=== PATIENT | male | born 1955 | race Hispanic/Latino ===

== ENCOUNTER 2020-12-07 12:35 | Outpatient (CLI) | payer MEDICARE | END 2020-12-07 12:36 | disposition home or self-care (01) | LOC: TBSIIMAG 12:35 | PROVIDERS: ATTEND Nurse Practitioner Family | DX: M47.26 Other spondylosis with radiculopathy, lumbar region (principal); M47.24 Other spondylosis with radiculopathy, thoracic region | CPT/HCPCS: 72072; 72100; 72146; 72148 ==

== ENCOUNTER 2020-12-19 10:11 | Outpatient (CLI) | payer MEDICARE | END 2020-12-19 10:12 | disposition home or self-care (01) | LOC: TBSIIMAG 10:11 | PROVIDERS: ATTEND Nurse Practitioner Family | DX: M48.02 Spinal stenosis, cervical region (principal); M47.812 Spondylosis without myelopathy or radiculopathy, cervical region; M25.78 Osteophyte, vertebrae | CPT/HCPCS: 72141 ==

== ENCOUNTER 2021-09-10 10:57 | Outpatient (CLI) | payer MEDICARE ==
[2021-09-10 12:34] LABS: Hemoglobin 14.8 g/dL (13.5-17.5); Mean Corpuscular HGB CONC 33.3 g/dL (32.0-36.0); Mean Corpuscular Hemoglobin 28.7 pg (27.0-33.0); Mean Corpuscular Volume 86.4 fl (81.2-95.1); Mean Platelet Volume 9.3 fl (7.4-10.4); Platelet Count 225 10x3/uL (150-450); RBC Distribution Width 12.2 % (11.5-14.5); Red Blood Cell (RBC) Count 5.15 10x6/uL (4.32-5.72); White Blood Cell (WBC) Count 7.1 10x3/uL (3.5-10.5)
[2021-09-10 12:57] LABS: PTT 26.4 sec (22.0-33.0); Prothrombin Time 10.9 sec (9.5-12.1)
[2021-09-10 13:11] LABS: Anion Gap 14 mmol/L (10-20); BUN (Urea Nitrogen) 16 mg/dL (8.4-25.7); Calc. Creatinine Clearance 0 mL/min (70-130); Calcium 9.6 mg/dL (7.8-10.44); Carbon Dioxide 26 mmol/L (23-31); Chloride 103 mmol/L (98-107); Glucose 326 mg/dL (80-115); Potassium 4.3 mmol/L (3.5-5.1); Sodium 139 mmol/L (136-145)
[2021-09-10 23:42] LABS: SARS-CoV-2 PCR by NAA Not Detected (NotDetected)
== END 2021-09-10 10:58 | disposition home or self-care (01) ==
LOC: LABBT 10:57
PROVIDERS: ATTEND Surgery
DX: Z01.818 Encounter for other preprocedural examination (principal); M54.16 Radiculopathy, lumbar region; M48.062 Spinal stenosis, lumbar region with neurogenic claudication; Z20.822 Contact with and (suspected) exposure to COVID-19
CPT/HCPCS: 80048; 85027; 85610; 85730; 93005; U0003; U0005; 93010

== ENCOUNTER 2021-10-18 06:08 | Day surgery (SDC) | payer MEDICARE ==
[2021-09-10 14:06] VITALS: BMI 33.4
[2021-10-18] MEDS ORDERED: Ketamine 50 MG/ML (10ML VIAL) ONE (06:40)
[2021-10-18] MEDS ORDERED: Fentanyl 100 MCG/2 ML VIAL ONE (06:41)
[2021-10-18 07:18] LABS: ALT (SGPT) 60 U/L (8-55); AST (SGOT) 43 U/L (5-34); Albumin 4.5 g/dL (3.4-4.8); Alkaline Phosphatase 197 U/L (40-110); Anion Gap 22 mmol/L (10-20); BUN (Urea Nitrogen) 71 mg/dL (8.4-25.7); Bilirubin, Total 0.9 mg/dL (0.2-1.2); Calc. Creatinine Clearance 20 mL/min (70-130); Calcium 9.3 mg/dL (7.8-10.44); Carbon Dioxide 17 mmol/L (23-31); Chloride 99 mmol/L (98-107); Globulin 3.3 g/dL (2.4-3.5); Glucose 123 mg/dL (80-115); Potassium 4.3 mmol/L (3.5-5.1); Protein, Total 7.8 g/dL (5.8-8.1); Sodium 134 mmol/L (136-145)
[2021-10-18] MEDS ORDERED: Thrombin 5000 UNITS/5 ML VIAL ONE (07:18)
== END 2021-10-18 07:32 ==
LOC: SDC 06:08
PROVIDERS: ATTEND Surgery
DX: M48.061 Spinal stenosis, lumbar region without neurogenic claudication (principal); Z53.8 Procedure and treatment not carried out for other reasons; M54.16 Radiculopathy, lumbar region; Z79.82 Long term (current) use of aspirin; Z79.84 Long term (current) use of oral hypoglycemic drugs; Z79.899 Other long term (current) drug therapy
CPT/HCPCS: 76000; 80053; J3010; J3370

== ENCOUNTER 2021-12-30 11:22 | Outpatient (CLI) | payer MEDICARE ==
[2021-12-30 13:08] LABS: Hemoglobin 14.3 g/dL (13.5-17.5); Mean Corpuscular HGB CONC 34.1 g/dL (32.0-36.0); Mean Platelet Volume 9.5 fl (7.4-10.4); Platelet Count 260 10x3/uL (150-450); RBC Distribution Width 12.5 % (11.5-14.5); Red Blood Cell (RBC) Count 4.76 10x6/uL (4.32-5.72)
[2021-12-30 13:30] LABS: Anion Gap 15 mmol/L (10-20); BUN (Urea Nitrogen) 16 mg/dL (8.4-25.7); Calc. Creatinine Clearance 0 mL/min (70-130); Calcium 9.6 mg/dL (7.8-10.44); Carbon Dioxide 26 mmol/L (23-31); Chloride 105 mmol/L (98-107); Glucose 133 mg/dL (80-115); Potassium 4.3 mmol/L (3.5-5.1); Sodium 142 mmol/L (136-145)
[2021-12-30 13:43] LABS: PTT 26.7 sec (22.0-33.0); Prothrombin Time 10.5 sec (9.5-12.1)
== END 2021-12-30 11:23 | disposition home or self-care (01) ==
LOC: LABBT 11:22
PROVIDERS: ATTEND Surgery
DX: Z01.818 Encounter for other preprocedural examination (principal); M54.16 Radiculopathy, lumbar region; M48.062 Spinal stenosis, lumbar region with neurogenic claudication; Z20.822 Contact with and (suspected) exposure to COVID-19
CPT/HCPCS: 80048; 85027; 85610; 85730; 93005; U0003; U0005; 93010

== ENCOUNTER 2022-01-02 05:35 | Inpatient (IN) | payer MEDICARE ==
[2022-01-02] MEDS ORDERED: Thrombin 5000 UNITS/5 ML VIAL ONE (06:30)
[2022-01-02] MEDS ORDERED: Midazolam HCl 2 mg/2 ml Vial ONE (06:44)
[2022-01-02] MEDS ORDERED: fentaNYL Citrate/PF 100 MCG/2 ML SYRINGE ONE ×2 (06:44→09:38)
[2022-01-02] MEDS ORDERED: Sodium Chloride 0.9% 100 ML ONE (07:11)
[2022-01-02] MEDS ORDERED: CEFAZOLIN 2 GM VIAL ONE (07:11)
[2022-01-02] MEDS ORDERED: Lidocaine 1% PF 5 ML VIAL ONE (07:24)
[2022-01-02] MEDS ORDERED: PHENYLEPHRINE-NS 100 MCG/ML 10 ML SYRINGE ONE (07:24)
[2022-01-02] MEDS ORDERED: PROPOFOL 200 MG/20 ML VIAL ONE (07:24)
[2022-01-02] MEDS ORDERED: Labetalol HCl 100 MG/20 ML VIAL ONE (07:24)
[2022-01-02] MEDS ORDERED: Rocuronium Bromide 10 MG/ML (10ML VIAL) ONE (07:24)
[2022-01-02] MEDS ORDERED: Dexamethasone 20 MG/5 ML VIAL ONE (07:24)
[2022-01-02] MEDS ORDERED: Ondansetron PF 4 MG/2 ML Vial ONE (07:24)
[2022-01-02] MEDS ORDERED: Glycopyrrolate 0.2 MG/ML 5 ML SYRINGE ONE (07:24)
[2022-01-02] MEDS ORDERED: Chlorhexidine Gluconate 15 ML UDCUP SSP ONE (07:24)
[2022-01-02] MEDS ORDERED: ePHEDrine 50 MG/ML VIAL ONE (07:24)
[2022-01-02] MEDS ORDERED: Fentanyl 100 MCG/2 ML VIAL ONE (09:42)
[2022-01-02] MEDS ORDERED: Acetaminophen 325 MG TAB PO PRN (09:58)
[2022-01-02] MEDS ORDERED: traMADol HCl 50 MG TAB PO PRN (09:58)
[2022-01-02] MEDS ORDERED: hydrALAZINE 20 MG/ML VIAL SLOW IVP PRN (10:04)
[2022-01-02 10:58] VITALS: BMI 34.0
[2022-01-02] MEDS: CEFAZOLIN 2 GM in Sodium Chloride 0.9% 100 ML IVPB SCH ×2 (11:16→17:23)
[2022-01-02] MEDS: Sodium Chloride 0.9% 1,000 ML IV SCH ×2 (11:17→23:04)
[2022-01-02] MEDS: HYDROcodone/Acetaminophen 7.5/325 mg Tablet PO PRN ×2 (12:19→18:33)
[2022-01-02] MEDS: Acetaminophen/Codeine 30-300mg Tablet PO PRN ×2 (15:09→22:24)
[2022-01-02] MEDS: Atorvastatin Calcium 20 MG TAB PO SCH (21:15)
[2022-01-02] MEDS: Morphine 2 MG/ML VIAL SLOW IVP PRN (21:18)
[2022-01-03] MEDS: HYDROcodone/Acetaminophen 7.5/325 mg Tablet PO PRN ×4 (00:05→22:25)
[2022-01-03] MEDS: Ondansetron PF 4 MG/2 ML Vial IVP PRN ×3 (00:08→21:06)
[2022-01-03] MEDS: tiZANidine HCl 4 MG TAB PO PRN ×2 (00:08→22:25)
[2022-01-03] MEDS: Lisinopril 20 MG TAB PO SCH (08:50)
[2022-01-03] MEDS: Montelukast Sodium 10 mg Tablet PO SCH (08:50)
[2022-01-03] MEDS: Cholestyramine/Aspartame 4 gm Packet PO SCH (08:50)
[2022-01-03] MEDS: Fenofibrate Nanocrystallized 145 MG TAB PO SCH (08:50)
[2022-01-03] MEDS: Morphine 2 MG/ML VIAL SLOW IVP PRN (08:51)
[2022-01-03] MEDS: Sodium Chloride 0.9% 1,000 ML IV SCH (08:51)
[2022-01-03] MEDS: Acetaminophen/Codeine 30-300mg Tablet PO PRN (21:05)
[2022-01-03] MEDS: Atorvastatin Calcium 20 MG TAB PO SCH (21:06)
[2022-01-04] MEDS: Sodium Chloride 0.9% 1,000 ML IV SCH (00:31)
[2022-01-04 08:43] VITALS: BP 122/72; TEMP 99.3
[2022-01-04] MEDS: Lisinopril 20 MG TAB PO SCH (10:12)
[2022-01-04] MEDS: HYDROcodone/Acetaminophen 7.5/325 mg Tablet PO PRN (10:12)
[2022-01-04] MEDS: Fenofibrate Nanocrystallized 145 MG TAB PO SCH (10:12)
[2022-01-04] MEDS: Cholestyramine/Aspartame 4 gm Packet PO SCH (10:12)
[2022-01-04] MEDS: Montelukast Sodium 10 mg Tablet PO SCH (10:12)
[2022-01-04] MEDS: Acetaminophen/Codeine 30-300mg Tablet PO PRN (15:19)
== END 2022-01-04 16:53 | disposition home or self-care (01) | DRG 517 ==
LOC: SDC 05:35 → MSONC 10:04 → OBSVTOIN 01-03 09:45
PROVIDERS: ADMIT Surgery; ATTEND Surgery
PROC: 01NB0ZZ Release Lumbar Nerve, Open Approach (ICD-10-PCS; principal; 2022-01-02)
DX: M48.062 Spinal stenosis, lumbar region with neurogenic claudication (principal); M54.16 Radiculopathy, lumbar region; F10.10 Alcohol abuse, uncomplicated; Z20.822 Contact with and (suspected) exposure to COVID-19; I10 Essential (primary) hypertension; E78.5 Hyperlipidemia, unspecified; I25.10 Atherosclerotic heart disease of native coronary artery without angina pectoris; F17.210 Nicotine dependence, cigarettes, uncomplicated; F32.A Depression, unspecified; J30.2 Other seasonal allergic rhinitis; Z79.899 Other long term (current) drug therapy; Z79.82 Long term (current) use of aspirin; Z95.5 Presence of coronary angioplasty implant and graft
CPT/HCPCS: 76000; J1100; J2250; J2270; J2405; J2704; J3010; J3370; J3490; J7050

== ENCOUNTER 2022-04-17 09:24 | Outpatient (CLI) | payer MEDICARE | END 2022-04-17 09:25 | disposition home or self-care (01) | LOC: CTENTCT 09:24 | PROVIDERS: ATTEND Otolaryngology Plastic Surgery within the Head & Neck | DX: J30.9 Allergic rhinitis, unspecified (principal) | CPT/HCPCS: 70486 ==

== ENCOUNTER 2022-06-02 23:26 | Emergency (ER) | payer MEDICARE ==
[2022-06-03] MEDS ORDERED: Morphine 4 MG/ML VIAL ONE (00:16)
[2022-06-03] MEDS ORDERED: Ondansetron PF 4 MG/2 ML Vial ONE (00:16)
[2022-06-03] MEDS ORDERED: Ketorolac Tromethamine 30 MG/ML VIAL ONE (00:16)
[2022-06-03 00:46] LABS: #Eosinphils 0.3 thou/uL (0.0-0.7); #Monocytes 0.6 thou/uL (0.11-0.59); #Neutrophils 4.9 thou/uL (1.40-6.50); %Eosinophils 3.7 % (0.0-10.0); %Lymphocytes 25.7 % (21.0-51.0); %Monocytes 8.1 % (0.0-10.0); %Neutrophils 62.5 % (42.0-75.0); Hemoglobin 12.9 g/dL (14.0-18.0); Mean Corpuscular HGB CONC 34.1 g/dL (32.0-36.0); Mean Corpuscular Hemoglobin 30.9 pg (27.0-31.0); Mean Corpuscular Volume 90.5 fl (78.0-98.0); Mean Platelet Volume 7.1 fL (7.4-10.4); Platelet Count 231 thou/uL (130-400); RBC Distribution Width 12.3 % (11.5-14.5); Red Blood Cell (RBC) Count 4.16 mill/uL (4.70-6.10); White Blood Cell (WBC) Count 7.9 thou/uL (4.8-10.8)
[2022-06-03 01:24] LABS: ALT (SGPT) 41 U/L (8-55); AST (SGOT) 30 U/L (5-34); Albumin 4.1 g/dL (3.4-4.8); Alkaline Phosphatase 175 U/L (40-110); Anion Gap 11 mmol/L (10-20); BUN (Urea Nitrogen) 28 mg/dL (8.4-25.7); Bilirubin, Total 0.6 mg/dL (0.2-1.2); Calc. Creatinine Clearance 0 mL/min (70-130); Calcium 9.6 mg/dL (7.8-10.44); Carbon Dioxide 27 mmol/L (23-31); Chloride 104 mmol/L (98-107); Estimated GFR 46; Globulin 3.4 g/dL (2.4-3.5); Glucose 161 mg/dL (80-115); Potassium 3.7 mmol/L (3.5-5.1); Protein, Total 7.5 g/dL (5.8-8.1); Sodium 138 mmol/L (136-145)
[2022-06-03 01:39] LABS: Bilirubin Negative (Negative); Blood, Urine Negative (Negative); Clarity Clear (Clear); Glucose, Urine (Dipstick) Normal (Negative); Ketone, Urine Trace mg/dL (Negative); Leukocyte Negative Leu/uL (Negative); Nitrite Negative (Negative); Protein, Urine (Dipstick) 20 mg/dL (Neg-Trace); Specific Gravity, Urine 1.042 (1.002-1.036)
== END 2022-06-03 01:55 | disposition home or self-care (01) ==
LOC: ERS 23:26
DX: M54.32 Sciatica, left side (principal); I10 Essential (primary) hypertension; E78.00 Pure hypercholesterolemia, unspecified; E11.9 Type 2 diabetes mellitus without complications; F17.200 Nicotine dependence, unspecified, uncomplicated
CPT/HCPCS: 74176; 80053; 81003; 85025; 87086; 96374; 96375; J1885; J2270; J2405

== ENCOUNTER 2022-06-30 13:54 | Outpatient (CLI) | payer MEDICARE | END 2022-06-30 13:55 | disposition home or self-care (01) | LOC: SCSMRI 13:54 | PROVIDERS: ATTEND Surgery | DX: M47.26 Other spondylosis with radiculopathy, lumbar region (principal); Z98.890 Other specified postprocedural states | CPT/HCPCS: 72120; 72148 ==

== ENCOUNTER 2022-12-10 11:39 | Outpatient (CLI) | payer MEDICARE | END 2022-12-10 11:40 | disposition home or self-care (01) | LOC: LABBT 11:39 | PROVIDERS: ATTEND Thoracic Surgery (Cardiothoracic Vascular Surgery) | DX: Z01.810 Encounter for preprocedural cardiovascular examination (principal); I25.10 Atherosclerotic heart disease of native coronary artery without angina pectoris | CPT/HCPCS: 80048; 85027; 86850; 86900; 86901; 93005; 93010 ==

== ENCOUNTER 2024-05-23 08:45 | Outpatient (CLI) | payer MEDICARE | END 2024-05-23 08:46 | disposition home or self-care (01) | LOC: ULT 08:45 | PROVIDERS: ATTEND Family Medicine | DX: R74.8 Abnormal levels of other serum enzymes (principal); R16.1 Splenomegaly, not elsewhere classified | CPT/HCPCS: 76700 ==

== ENCOUNTER 2024-05-25 07:39 | Outpatient (CLI) | payer MEDICARE | END 2024-05-25 07:40 | disposition home or self-care (01) | LOC: SCSMRI 07:39 | PROVIDERS: ATTEND Student in an Organized Health Care Education/Training Program | DX: R51.9 Headache, unspecified (principal); R29.898 Other symptoms and signs involving the musculoskeletal system; M47.816 Spondylosis without myelopathy or radiculopathy, lumbar region; M48.061 Spinal stenosis, lumbar region without neurogenic claudication; R93.0 Abnormal findings on diagnostic imaging of skull and head, not elsewhere classified; Z98.890 Other specified postprocedural states | CPT/HCPCS: 70551; 72148 ==

== ENCOUNTER 2024-07-14 08:43 | Outpatient (CLI) | payer MEDICARE | END 2024-07-14 08:44 | disposition home or self-care (01) | LOC: SCSMRI 08:43 | PROVIDERS: ATTEND Physician Assistant Medical | DX: R79.89 Other specified abnormal findings of blood chemistry (principal); Z12.11 Encounter for screening for malignant neoplasm of colon; R19.4 Change in bowel habit; R10.13 Epigastric pain; R16.1 Splenomegaly, not elsewhere classified | CPT/HCPCS: 74183; 76376 ==

== ENCOUNTER 2025-03-09 11:36 | Outpatient (CLI) | payer MEDICARE ==
[2025-03-09 12:41] LABS: #Basophils Less than 0.03 10x3/uL (0.0-0.2); #Eosinophils 0.05 10x3/uL (0.0-0.7); #Monocytes 0.48 10x3/uL (0.11-0.59); #Neutrophils 4.71 10x3/uL (1.40-6.50); %Basophils 0.3 % (0.0-1.0); %Eosinophils 0.8 % (0.0-10.0); %Lymphocytes 16.7 % (21.0-51.0); %Monocytes 7.6 % (0.0-10.0); %Neutrophils 74.3 % (42.0-75.0); Hematocrit 22.7 % (42.0-52.0); Hemoglobin 6.8 g/dL (14.0-18.0); Mean Corpuscular Hemoglobin 25.9 pg (27.0-31.0); Mean Corpuscular Volume 86.3 fL (78.0-98.0); Platelet Count 148 10x3/uL (130-400); Red Blood Cell (RBC) Count 2.63 mill/uL (4.70-6.10); White Blood Cell (WBC) Count 6.34 10x3/uL (4.8-10.8)
[2025-03-09 12:59] LABS: Anion Gap 14 mmol/L (10-20); BUN (Urea Nitrogen) 29 mg/dL (8.4-25.7); Calc. Creatinine Clearance 0 mL/min (70-130); Calcium 8.2 mg/dL (7.8-10.44); Carbon Dioxide 26 mmol/L (23-31); Chloride 108 mmol/L (98-107); Glucose 162 mg/dL (80-115); Potassium 3.8 mmol/L (3.5-5.1); Sodium 144 mmol/L (136-145)
== END 2025-03-09 11:37 | disposition home or self-care (01) ==
LOC: LABBT 11:36
PROVIDERS: ATTEND Internal Medicine Cardiovascular Disease
DX: Z01.812 Encounter for preprocedural laboratory examination (principal); I48.92 Unspecified atrial flutter
CPT/HCPCS: 80048; 85025

== ENCOUNTER 2025-03-14 12:22 | Inpatient (IN) | payer MEDICARE ==
[~2025-03-14 12:22] MED LIST: Iopamidol-370 76% 500 ML MDV (1 ML CHARGE) ONE
[2025-03-14 14:36] LABS: #Basophils Less than 0.03 10x3/uL (0.0-0.2); #Eosinophils 0.12 10x3/uL (0.0-0.7); #Monocytes 0.71 10x3/uL (0.11-0.59); #Neutrophils 5.14 10x3/uL (1.40-6.50); %Basophils 0.3 % (0.0-1.0); %Eosinophils 1.6 % (0.0-10.0); %Lymphocytes 19.9 % (21.0-51.0); %Monocytes 9.4 % (0.0-10.0); %Neutrophils 68.4 % (42.0-75.0); Hematocrit 21.7 % (42.0-52.0); Hemoglobin 6.3 g/dL (14.0-18.0); Mean Corpuscular Hemoglobin 24.2 pg (27.0-31.0); Mean Corpuscular Volume 83.5 fL (78.0-98.0); Platelet Count 182 10x3/uL (130-400); Red Blood Cell (RBC) Count 2.60 mill/uL (4.70-6.10); White Blood Cell (WBC) Count 7.52 10x3/uL (4.8-10.8)
[2025-03-14 14:54] LABS: ALT (SGPT) 38 U/L (Less than 45); AST (SGOT) 29 U/L (11-34); Albumin 3.6 g/dL (3.1-4.5); Alkaline Phosphatase 279 U/L (40-110); Anion Gap 12 mmol/L (10-20); BUN (Urea Nitrogen) 18 mg/dL (8.4-25.7); Bilirubin, Total 1.0 mg/dL (0.3-1.2); Calc. Creatinine Clearance 0 mL/min (70-130); Calcium 8.1 mg/dL (7.8-10.44); Carbon Dioxide 24 mmol/L (23-31); Chloride 107 mmol/L (98-107); Globulin 3.1 g/dL (2.4-3.5); Glucose 166 mg/dL (80-115); Potassium 3.4 mmol/L (3.5-5.1); Sodium 140 mmol/L (136-145)
[2025-03-14] MEDS ORDERED: Ondansetron PF 4 MG/2 ML Vial ONE (17:07)
[2025-03-14] MEDS ORDERED: Pantoprazole 40 MG VIAL ONE (17:07)
[2025-03-14] MEDS ORDERED: Ondansetron PF 4 MG/2 ML Vial IVP PRN (19:40)
[2025-03-14 21:54] VITALS: BMI 33.1
[2025-03-14] MEDS: Furosemide 40 MG (4 mL) VIAL SLOW IVP SCH (22:11)
[2025-03-15 00:39] LABS: Iron 72 ug/dL (65-175); Iron Binding Capacity, Total 443 mcg/dL (261-462)
[2025-03-15 00:44] LABS: Hematocrit 21.4 % (42.0-52.0); Hemoglobin 6.5 g/dL (14.0-18.0)
[2025-03-15] MEDS: Octreotide Acetate 1,250 MCG in Sodium Chloride 0.9% 250 ML 250 ML IVPB SCH (03:13)
[2025-03-15 03:22] LABS: Ferritin 7.49 ng/mL (22-322); Vitamin B12 459.0 pg/mL (211-911)
[2025-03-15] MEDS: Pantoprazole 40 MG VIAL IVP SCH (08:14)
[2025-03-15] MEDS ORDERED: PROPOFOL 20 ML ONE (10:25)
[2025-03-15] MEDS ORDERED: GLYCOPYRROLATE/PF 0.2 MG/ML VIAL ONE (11:25)
[2025-03-15 12:18] LABS: #Basophils Less than 0.03 10x3/uL (0.0-0.2); #Eosinophils 0.09 10x3/uL (0.0-0.7); #Monocytes 0.43 10x3/uL (0.11-0.59); #Neutrophils 3.42 10x3/uL (1.40-6.50); %Basophils 0.4 % (0.0-1.0); %Eosinophils 1.9 % (0.0-10.0); %Lymphocytes 16.9 % (21.0-51.0); %Monocytes 9.0 % (0.0-10.0); %Neutrophils 71.2 % (42.0-75.0); Hematocrit 23.5 % (42.0-52.0); Hemoglobin 7.4 g/dL (14.0-18.0); Mean Corpuscular Hemoglobin 25.3 pg (27.0-31.0); Mean Corpuscular Volume 80.5 fL (78.0-98.0); Platelet Count 132 10x3/uL (130-400); Red Blood Cell (RBC) Count 2.92 mill/uL (4.70-6.10); White Blood Cell (WBC) Count 4.80 10x3/uL (4.8-10.8)
[2025-03-15] MEDS: cefTRIAXone\\ROCEPHIN 1 GM in Sodium Chloride 0.9% 100 ML IVPB SCH (16:33)
[2025-03-15] MEDS ORDERED: Electrolyte Replacement Protocol 1 EACH FS PRN (17:07)
[2025-03-15 18:10] LABS: Anion Gap 13 mmol/L (10-20); BUN (Urea Nitrogen) 16 mg/dL (8.4-25.7); Calc. Creatinine Clearance 85 mL/min (70-130); Calcium 7.8 mg/dL (7.8-10.44); Carbon Dioxide 24 mmol/L (23-31); Chloride 107 mmol/L (98-107); Glucose 170 mg/dL (80-115); Magnesium 1.8 mg/dL (1.6-2.6); Potassium 4.0 mmol/L (3.5-5.1); Sodium 140 mmol/L (136-145)
[2025-03-15] MEDS: Acetaminophen 325 MG TAB PO PRN (21:47)
[2025-03-15] MEDS: Bupropion 150 MG SR.TAB PO SCH (21:47)
[2025-03-15] MEDS: Magnesium 2 GM/50 ML(in water) 2 GM in Premix 1 BAG IVPB SCH (21:48)
[2025-03-16 06:29] LABS: Anion Gap 10 mmol/L (10-20); BUN (Urea Nitrogen) 14 mg/dL (8.4-25.7); Calc. Creatinine Clearance 87 mL/min (70-130); Calcium 7.9 mg/dL (7.8-10.44); Carbon Dioxide 26 mmol/L (23-31); Chloride 108 mmol/L (98-107); Glucose 152 mg/dL (80-115); Magnesium 2.4 mg/dL (1.6-2.6); Potassium 4.1 mmol/L (3.5-5.1); Sodium 140 mmol/L (136-145)
[2025-03-16 06:34] LABS: #Basophils 0.03 10x3/uL (0.0-0.2); #Eosinophils 0.18 10x3/uL (0.0-0.7); #Monocytes 0.56 10x3/uL (0.11-0.59); #Neutrophils 4.25 10x3/uL (1.40-6.50); %Basophils 0.5 % (0.0-1.0); %Eosinophils 2.9 % (0.0-10.0); %Lymphocytes 18.4 % (21.0-51.0); %Monocytes 9.0 % (0.0-10.0); %Neutrophils 68.6 % (42.0-75.0); Hematocrit 26.8 % (42.0-52.0); Hemoglobin 8.4 g/dL (14.0-18.0); Mean Corpuscular Hemoglobin 25.3 pg (27.0-31.0); Mean Corpuscular Volume 80.7 fL (78.0-98.0); Platelet Count 132 10x3/uL (130-400); Red Blood Cell (RBC) Count 3.32 mill/uL (4.70-6.10); White Blood Cell (WBC) Count 6.20 10x3/uL (4.8-10.8)
[2025-03-16 06:49] LABS: Hep A IgM AB NONREACTIVE (NonReactive); Hep A IgM S/CO 0.24 S/CO (0-0.79); Hep B Core IgM Index 0.07 S/CO (0-0.79); Hep B Surf Ag NONREACTIVE S/CO (NonReactive); Hep C IgG Ab NONREACTIVE S/CO (NonReactive); Hep C Index 0.07 S/CO (0-0.79)
[2025-03-16] MEDS: Sertraline 100 MG TAB PO SCH (09:21)
[2025-03-16] MEDS: Oxybutynin 5 MG TAB PO SCH (09:21)
[2025-03-16] MEDS: glipiZIDE 5 MG TAB PO SCH (09:22)
[2025-03-16] MEDS: Benzocaine/Menthol 1 LOZ LOZ PO PRN (11:38)
[2025-03-16] MEDS: Tadalafil [Cialis] 5 MG Tablet PO SCH (12:35)
[2025-03-17 06:22] LABS: Hematocrit 27.8 % (42.0-52.0); Hemoglobin 8.3 g/dL (14.0-18.0)
[2025-03-17 14:47] VITALS: BP 139/76; TEMP 98.3
== END 2025-03-17 16:00 | disposition home or self-care (01) | DRG 812 ==
LOC: ERS 12:22 → T4-B 19:33
PROVIDERS: ADMIT Student in an Organized Health Care Education/Training Program; ATTEND Internal Medicine
PROC: 3E03329 Introduction of Other Anti-infective into Peripheral Vein, Percutaneous Approach (ICD-10-PCS; 2025-03-14)
PROC: 30233N1 Transfusion of Nonautologous Red Blood Cells into Peripheral Vein, Percutaneous Approach (ICD-10-PCS; 2025-03-14)
PROC: 06L38CZ Occlusion of Esophageal Vein with Extraluminal Device, Via Natural or Artificial Opening Endoscopic (ICD-10-PCS; principal; 2025-03-15)
DX: D64.9 Anemia, unspecified (principal); K76.6 Portal hypertension; I48.92 Unspecified atrial flutter; I85.10 Secondary esophageal varices without bleeding; E87.6 Hypokalemia; E11.9 Type 2 diabetes mellitus without complications; N40.0 Benign prostatic hyperplasia without lower urinary tract symptoms; I10 Essential (primary) hypertension; I25.10 Atherosclerotic heart disease of native coronary artery without angina pectoris; K21.9 Gastro-esophageal reflux disease without esophagitis; F32.A Depression, unspecified; E78.00 Pure hypercholesterolemia, unspecified; E66.01 Morbid (severe) obesity due to excess calories; K31.89 Other diseases of stomach and duodenum; Z95.1 Presence of aortocoronary bypass graft; I25.2 Old myocardial infarction; Z98.890 Other specified postprocedural states; Z95.5 Presence of coronary angioplasty implant and graft; Z79.82 Long term (current) use of aspirin; Z79.899 Other long term (current) drug therapy; F17.220 Nicotine dependence, chewing tobacco, uncomplicated; K74.60 Unspecified cirrhosis of liver; Z68.33 Body mass index [BMI] 33.0-33.9, adult
CPT/HCPCS: 36415; 36416; 36430; 74177; 80048; 80053; 80074; 80307; 82274; 82607; 82728; 82977; 83010; 83036; 83540; 83550; 83690; 83735; 84100; 84443; 84484; 85014; 85018; 85025; 85046; 86850; 86900; 86901; 93005; 96374; 96375; J0696; J1940; J2354; J2405; J2470; J2704; J3475; J3490; J7050; P9016; Q9967

== ENCOUNTER 2025-03-28 16:49 | Inpatient (IN) | payer MEDICARE ==
[2025-03-28 18:45] LABS: ALT (SGPT) 27 U/L (Less than 45); AST (SGOT) 28 U/L (11-34); Albumin 3.2 g/dL (3.1-4.5); Alkaline Phosphatase 290 U/L (40-110); Anion Gap 18 mmol/L (10-20); BUN (Urea Nitrogen) 26 mg/dL (8.4-25.7); Bilirubin, Total 1.9 mg/dL (0.3-1.2); Calc. Creatinine Clearance 0 mL/min (70-130); Calcium 8.3 mg/dL (7.8-10.44); Carbon Dioxide 21 mmol/L (23-31); Chloride 109 mmol/L (98-107); Globulin 2.9 g/dL (2.4-3.5); Glucose 127 mg/dL (80-115); Lipase 33 U/L (8-78); Potassium 4.5 mmol/L (3.5-5.1); Sodium 143 mmol/L (136-145)
[2025-03-28 19:12] LABS: Platelet Adequacy Comment Platelets Normal; Polychromasia MODERATE = 3-4 cells HPF (0-2)
[2025-03-28 19:15] LABS: #Basophils Less than 0.03 10x3/uL (0.0-0.2); #Eosinophils 0.13 10x3/uL (0.0-0.7); #Monocytes 0.77 10x3/uL (0.11-0.59); #Neutrophils 4.92 10x3/uL (1.40-6.50); %Basophils 0.3 % (0.0-1.0); %Eosinophils 1.8 % (0.0-10.0); %Lymphocytes 20.0 % (21.0-51.0); %Monocytes 10.5 % (0.0-10.0); %Neutrophils 67.0 % (42.0-75.0); Hematocrit 26.6 % (42.0-52.0); Hemoglobin 7.6 g/dL (14.0-18.0); Mean Corpuscular Hemoglobin 24.2 pg (27.0-31.0); Mean Corpuscular Volume 84.7 fL (78.0-98.0); Platelet Count 162 10x3/uL (130-400); Red Blood Cell (RBC) Count 3.14 mill/uL (4.70-6.10); White Blood Cell (WBC) Count 7.34 10x3/uL (4.8-10.8)
[2025-03-28] MEDS ORDERED: Octreotide Acetate 1,250 MCG in Sodium Chloride 0.9% 250 ML 250 ML IVPB SCH ×2 (20:00→20:30)
[2025-03-28] MEDS ORDERED: Pantoprazole 40 MG VIAL ONE ×2 (20:02→22:11)
[2025-03-28] MEDS ORDERED: cefTRIAXone (ROCEPHIN) 1 GM VIAL ONE (20:02)
[2025-03-28] MEDS ORDERED: Metoprolol Tartrate 5 MG (5 mL) VIAL ONE (20:07)
[2025-03-28 20:29] LABS: INR-International Normal Ratio 1.4; Prothrombin Time 17.3 sec (12.0-14.7)
[2025-03-28] MEDS ORDERED: Acetaminophen 325 MG TAB PO PRN (20:29)
[2025-03-28] MEDS ORDERED: Calcium Carbonate 500 MG ChewTAB PO PRN (20:29)
[2025-03-28] MEDS ORDERED: Ondansetron PF 4 MG/2 ML Vial IVP PRN (20:29)
[2025-03-28 20:30] LABS: PTT 37.7 sec (22.9-36.1)
[2025-03-28] MEDS ORDERED: Octreotide Acetate 1,000 mcg/ml MDV ONE (20:30)
[2025-03-28] MEDS ORDERED: Sodium Chloride 0.9% 250 ML BAG (BAXTER) ONE (20:30)
[2025-03-28] MEDS ORDERED: Pantoprazole 80 MG, Admixture Fee 1 EACH in Sodium Chloride 0.9% 100 ML IVP SCH ×2 (20:30→22:45)
[2025-03-28] MEDS ORDERED: Electrolyte Replacement Protocol 1 EACH FS SCH (20:30)
[2025-03-28] MEDS ORDERED: Dextrose 50% Abboject 50 ML SYRINGE SLOW IVP PRN (20:36)
[2025-03-28] MEDS ORDERED: Glucagon 1 MG/ML KIT IM PRN (20:36)
[2025-03-28 21:06] LABS: Bacteria/HPF None Seen HPF (None Seen); CAUTI Indications for Culture Pelvic or flank pain; Glucose, Urine (Dipstick) Normal (Negative); Leukocyte Negative Leu/uL (Negative); Protein, Urine (Dipstick) 10 mg/dL (Neg-Trace); RBC/HPF 0-3 HPF (0-3); Specific Gravity, Urine 1.037 (1.002-1.036); WBC/HPF 0-3 HPF (0-3)
[2025-03-28] MEDS ORDERED: Ondansetron PF 4 MG/2 ML Vial ONE (21:13)
[2025-03-28 21:15] LABS: Sperm/HPF 4+ HPF (None Seen)
[2025-03-28 21:16] LABS: Urine Culture Reflex No No
[2025-03-28 23:25] VITALS: BMI 33.5
[2025-03-28] MEDS: Pantoprazole 40 MG VIAL IVP SCH (23:29)
[2025-03-29 01:03] LABS: #Basophils Less than 0.03 10x3/uL (0.0-0.2); #Eosinophils 0.09 10x3/uL (0.0-0.7); #Monocytes 0.67 10x3/uL (0.11-0.59); #Neutrophils 3.38 10x3/uL (1.40-6.50); %Basophils 0.2 % (0.0-1.0); %Eosinophils 1.6 % (0.0-10.0); %Lymphocytes 24.4 % (21.0-51.0); %Monocytes 12.1 % (0.0-10.0); %Neutrophils 61.2 % (42.0-75.0); Hematocrit 21.0 % (42.0-52.0); Hemoglobin 6.2 g/dL (14.0-18.0); Mean Corpuscular Hemoglobin 24.2 pg (27.0-31.0); Mean Corpuscular Volume 82.0 fL (78.0-98.0); Platelet Count 129 10x3/uL (130-400); Red Blood Cell (RBC) Count 2.56 mill/uL (4.70-6.10); White Blood Cell (WBC) Count 5.53 10x3/uL (4.8-10.8)
[2025-03-29 07:02] LABS: INR-International Normal Ratio 1.3; Prothrombin Time 16.3 sec (12.0-14.7)
[2025-03-29 07:03] LABS: PTT 36.2 sec (22.9-36.1)
[2025-03-29 07:11] LABS: #Basophils Less than 0.03 10x3/uL (0.0-0.2); #Eosinophils 0.12 10x3/uL (0.0-0.7); #Monocytes 0.57 10x3/uL (0.11-0.59); #Neutrophils 3.05 10x3/uL (1.40-6.50); %Basophils 0.4 % (0.0-1.0); %Eosinophils 2.5 % (0.0-10.0); %Lymphocytes 21.6 % (21.0-51.0); %Monocytes 11.9 % (0.0-10.0); %Neutrophils 63.4 % (42.0-75.0); Hematocrit 24.7 % (42.0-52.0); Hemoglobin 7.5 g/dL (14.0-18.0); Mean Corpuscular Hemoglobin 24.8 pg (27.0-31.0); Mean Corpuscular Volume 81.5 fL (78.0-98.0); Platelet Count 118 10x3/uL (130-400); Red Blood Cell (RBC) Count 3.03 mill/uL (4.70-6.10); White Blood Cell (WBC) Count 4.81 10x3/uL (4.8-10.8)
[2025-03-29 07:27] LABS: ALT (SGPT) 23 U/L (Less than 45); AST (SGOT) 24 U/L (11-34); Albumin 2.9 g/dL (3.1-4.5); Alkaline Phosphatase 241 U/L (40-110); Anion Gap 14 mmol/L (10-20); BUN (Urea Nitrogen) 28 mg/dL (8.4-25.7); Bilirubin, Total 2.1 mg/dL (0.3-1.2); Calc. Creatinine Clearance 89 mL/min (70-130); Calcium 8.0 mg/dL (7.8-10.44); Carbon Dioxide 21 mmol/L (23-31); Chloride 110 mmol/L (98-107); Globulin 3.0 g/dL (2.4-3.5); Glucose 138 mg/dL (80-115); Potassium 4.0 mmol/L (3.5-5.1); Sodium 141 mmol/L (136-145)
[2025-03-29] MEDS ORDERED: PROPOFOL 20 ML ONE (08:24)
[2025-03-29] MEDS ORDERED: GLYCOPYRROLATE/PF 0.2 MG/ML VIAL ONE (08:25)
[2025-03-29] MEDS: cefTRIAXone\\ROCEPHIN 1 GM in Sodium Chloride 0.9% 100 ML IVPB SCH (10:35)
[2025-03-29 12:03] LABS: Hemoglobin 7.1 g/dL (14.0-18.0)
[2025-03-29] MEDS: GoLYTELY 4,000 ml Bottle PO SCH (20:33)
[2025-03-30 07:44] LABS: Hemoglobin 7.5 g/dL (14.0-18.0)
[2025-03-30] MEDS: Pantoprazole 40 MG VIAL IVP SCH (08:45)
[2025-03-30] MEDS ORDERED: PROPOFOL 20 ML ONE (09:48)
[2025-03-30] MEDS ORDERED: Lidocaine 1% PF 5 ML VIAL ONE (09:49)
[2025-03-31] MEDS: Sertraline 100 MG TAB PO SCH (09:43)
[2025-03-31] MEDS: Sacubitril 24MG/Valsartan 26 MG TAB PO SCH (09:44)
[2025-03-31] MEDS: Bupropion 150 MG SR.TAB PO SCH (09:44)
[2025-03-31] MEDS: Oxybutynin 5 MG TAB PO SCH (09:44)
[2025-03-31] MEDS: glipiZIDE XL 5 mg ER.TAB PO SCH (09:46)
[2025-03-31] MEDS: Pantoprazole 40 MG DR.TAB PO SCH (09:46)
[2025-03-31 12:04] LABS: Hematocrit 26.6 % (42.0-52.0); Hemoglobin 7.8 g/dL (14.0-18.0); Platelet Count 121 10x3/uL (130-400)
[2025-03-31 15:54] VITALS: BP 101/66; TEMP 98.6
== END 2025-03-31 16:44 | disposition home or self-care (01) | DRG 812 ==
LOC: SUATTDRO 16:49 → ERS 16:49 → ERHOLD 20:29 → PCU 22:55
PROVIDERS: ADMIT Internal Medicine; ATTEND Hospitalist
PROC: 30233N1 Transfusion of Nonautologous Red Blood Cells into Peripheral Vein, Percutaneous Approach (ICD-10-PCS; 2025-03-28)
PROC: 0DJ08ZZ Inspection of Upper Intestinal Tract, Via Natural or Artificial Opening Endoscopic (ICD-10-PCS; principal; 2025-03-29)
PROC: 3E03329 Introduction of Other Anti-infective into Peripheral Vein, Percutaneous Approach (ICD-10-PCS; 2025-03-29)
PROC: 0DBH8ZZ Excision of Cecum, Via Natural or Artificial Opening Endoscopic (ICD-10-PCS; 2025-03-30)
PROC: 0DBN8ZZ Excision of Sigmoid Colon, Via Natural or Artificial Opening Endoscopic (ICD-10-PCS; 2025-03-30)
PROC: 0DBM8ZZ Excision of Descending Colon, Via Natural or Artificial Opening Endoscopic (ICD-10-PCS; 2025-03-30)
DX: D62 Acute posthemorrhagic anemia (principal); K92.1 Melena; K76.6 Portal hypertension; R18.8 Other ascites; I85.10 Secondary esophageal varices without bleeding; I48.91 Unspecified atrial fibrillation; K74.60 Unspecified cirrhosis of liver; I25.10 Atherosclerotic heart disease of native coronary artery without angina pectoris; E11.9 Type 2 diabetes mellitus without complications; N40.0 Benign prostatic hyperplasia without lower urinary tract symptoms; K21.9 Gastro-esophageal reflux disease without esophagitis; Z95.1 Presence of aortocoronary bypass graft; Z98.890 Other specified postprocedural states; K31.89 Other diseases of stomach and duodenum; K64.4 Residual hemorrhoidal skin tags; K64.8 Other hemorrhoids; K75.81 Nonalcoholic steatohepatitis (NASH); K52.9 Noninfective gastroenteritis and colitis, unspecified; Z79.899 Other long term (current) drug therapy; E78.00 Pure hypercholesterolemia, unspecified; I25.2 Old myocardial infarction; I10 Essential (primary) hypertension; Z95.5 Presence of coronary angioplasty implant and graft; F17.220 Nicotine dependence, chewing tobacco, uncomplicated; F32.A Depression, unspecified; Z79.84 Long term (current) use of oral hypoglycemic drugs; Z79.82 Long term (current) use of aspirin; K63.5 Polyp of colon
CPT/HCPCS: 36415; 36416; 36430; 74177; 80053; 81001; 83690; 83880; 84484; 85014; 85018; 85025; 85049; 85610; 85730; 86850; 86870; 86900; 86901; 86905; 86922; 88305; 93005; 96361; 96365; 96366; 96375; 96376; J0696; J2354; J2405; J2470; J2704; J3490; J7050; J7120; P9016; Q9967

== ENCOUNTER 2025-07-04 06:18 | Day surgery (SDC) | payer MEDICARE ==
[2025-07-03 12:21] VITALS: BMI 31.9
[2025-07-04] MEDS ORDERED: GLYCOPYRROLATE/PF 0.2 MG/ML VIAL ONE (07:50)
[2025-07-04] MEDS ORDERED: PROPOFOL 200 MG/20 ML VIAL ONE (07:52)
== END 2025-07-04 08:38 | disposition home or self-care (01) ==
LOC: SDC 06:18
PROVIDERS: ATTEND Internal Medicine Gastroenterology
PROC: 0DJ08ZZ Inspection of Upper Intestinal Tract, Via Natural or Artificial Opening Endoscopic (ICD-10-PCS; principal; 2025-07-04)
DX: K74.60 Unspecified cirrhosis of liver (principal); I85.10 Secondary esophageal varices without bleeding; D64.9 Anemia, unspecified; I10 Essential (primary) hypertension; K21.9 Gastro-esophageal reflux disease without esophagitis; Z87.891 Personal history of nicotine dependence; Z90.49 Acquired absence of other specified parts of digestive tract; Z95.5 Presence of coronary angioplasty implant and graft; Z95.1 Presence of aortocoronary bypass graft
CPT/HCPCS: 43235; J3490; 93005; 93010; J2704